=== PATIENT | female | born 1955 | race Caucasian/White ===

== ENCOUNTER 2024-11-24 16:49 | Observation (INO) | payer MEDICARE ==
[~2024-11-24] VITALS: Ht 157.4 cm; Wt 66.3 kg
[2024-11-24 16:45] VITALS: BP 125/63
[2024-11-24] MEDS ORDERED: Ondansetron Hydrochloride 4 MG/2 ML VIAL IV PRN (17:05)
[2024-11-24 17:30] LABS: BASO % 0.3 % (0.0-1.0); EOS # 0.2 10*3/uL (0.0-0.4); EOS % 3.4 % (1.0-4.0); HEMATOCRIT 37.9 % (37.0-47.0); MEAN CELL VOLUME 93.3 fl (81.0-99.0); MEAN CORPUSCULAR HGB 30.5 pg (27.0-31.0); MEAN CORPUSCULAR HGB CONC 32.7 g/dl (33.0-37.0); MEAN PLATELET VOLUME 9.5 fl (9.6-12.3); MONO # 0.5 10*3/uL (0.1-1.0); MONO % 7.6 % (3.0-9.0); NEUT # 3.8 10*3/uL (2.3-7.9); NEUT % 61.9 % (47.0-73.0); PLATELET COUNT AUTOMATED 191 10*3/uL (130-400); RED BLOOD COUNT 4.06 10*6/uL (4.10-5.10); RED CELL DISTRI WIDTH 17.2 % (0-14.5); WHITE BLOOD COUNT 6.2 10*3/uL (4.8-10.8)
[2024-11-24 17:50] LABS: BUN 23 mg/dl (9-23); CHLORIDE 106 mmol/L (98-107); POTASSIUM 3.3 mmol/L (3.4-5.1)
[2024-11-24] MEDS ORDERED: POTASSIUM CHLORIDE 20 MEQ TAB PO ONE (17:55)
[2024-11-24] MEDS ORDERED: LIPITOR10 MG PO (18:43)
[2024-11-24] MEDS ORDERED: SEROQUEL300 MG PO (18:44)
[2024-11-24] MEDS ORDERED: ZOLOFT100 MG PO (18:45)
[2024-11-24] MEDS ORDERED: AMANTADINE HCL100 M1 PO (18:46)
[2024-11-24] MEDS ORDERED: SEROQUEL400 M1 PO (18:48)
[2024-11-24] MEDS ORDERED: NEURONTIN100 MG PO (18:50)
[2024-11-24] MEDS ORDERED: VALPROIC A250 MG/52 PO (18:52)
[2024-11-24] MEDS ORDERED: ROSUVASTATIN CA10 MG PO (18:54)
[2024-11-24] MEDS ORDERED: OMEPRAZOLE40 MG PO (18:54)
[2024-11-24] MEDS ORDERED: HYDROCHLOROTH12.5 M2 PO (18:54)
[2024-11-24] MEDS ORDERED: QUETIAPINE FUM400 M1 PO (18:56)
[2024-11-24] MEDS ORDERED: SEROQUEL200 MG PO (18:57)
[2024-11-24 19:58] VITALS: BP 108/64
[2024-11-24 20:00] VITALS: BP 96/51
[2024-11-24] MEDS ORDERED: QUETIAPINE FUMARATE 400 MG PO SCH (22:00)
[2024-11-24] MEDS ORDERED: GABAPENTIN 100 MG CAP PO SCH (22:00)
[2024-11-24] MEDS ORDERED: Sertraline Hydrochloride 50 MG TAB PO SCH (22:00)
[2024-11-24] MEDS ORDERED: ATORVASTATIN CALCIUM 40 MG TABLET PO SCH (22:00)
[2024-11-24] MEDS ORDERED: [UNRECOGNIZED DRUG - OTHER] PO SCH (22:00)
[2024-11-24] MEDS ORDERED: VALPROIC ACID 250 MG CAP PO SCH (22:00)
[2024-11-25] VITALS: BP 114/64
[2024-11-25] MEDS ORDERED: OMEPRAZOLE 20 MG CAP PO SCH (06:00)
[2024-11-25 07:09] LABS: BUN 19 mg/dl (9-23); CHLORIDE 110 mmol/L (98-107)
[2024-11-25 07:43] LABS: POTASSIUM 4.3 mmol/L (3.4-5.1)
[2024-11-25 08:00] VITALS: BP 102/68
[2024-11-25] MEDS ORDERED: Enoxaparin Sodium 40 MG/0.4 ML SYR SC SCH (10:00)
[2024-11-25] MEDS ORDERED: hydroCHLOROthiazide 12.5 MG CAP PO SCH (10:00)
[2024-11-25 12:00] VITALS: BP 113/80
== END 2024-11-25 14:35 | disposition home or self-care (01) ==
LOC: 4E 16:49
PROVIDERS: Student in an Organized Health Care Education/Training Program; ADMIT Internal Medicine; ATTEND Internal Medicine
DX: F25.9 Schizoaffective disorder, unspecified (principal); F31.70 Bipolar disorder, currently in remission, most recent episode unspecified; E78.5 Hyperlipidemia, unspecified; R27.0 Ataxia, unspecified; Z79.899 Other long term (current) drug therapy